=== PATIENT | female | born 1990 | race Caucasian/White ===

== ENCOUNTER 2020-06-16 15:58 | Observation (INO) | payer OTHER, SELFPAY ==
[2020-06-16 18:03] VITALS: BMI 28.9
--- NOTE | 2020-06-16 18:06 | OBADM ---
This patient, Mariam Johnson, admitted to the OB room Labor/Delivery/Recovery 105 for observation. Patient/family oriented to hospital policies and general routines including ID bracelet, bed and alarms, visiting hours, pain management, procedures, bathroom and other care routines, personal items, smoking policy, room service/diet, and visiting hours. Patient/Family are encouraged to report perceived risks to care and to ask questions if they do not understand what they are told or what they should do.
--- NOTE | 2020-07-16 20:08 | PM.OBTRLD ---
OB - Triage/Final Diagnosis Final Diagnosis (1) contractions: Code(s): O47.9 - False labor, unspecified Status: Acute
== END 2020-06-16 18:56 | disposition home or self-care (01) ==
PROVIDERS: Admitting Provider Obstetrics & Gynecology; Visit Provider Obstetrics & Gynecology
DX: O47.03 False labor before 37 completed weeks of gestation, third trimester (principal); Z3A.36 36 weeks gestation of pregnancy
CPT/HCPCS: G0378; G0379

== ENCOUNTER 2020-06-25 17:32 | Observation (INO) | payer OTHER, SELFPAY ==
--- NOTE | 2020-06-25 17:32 | OBADM ---
This patient, Mariam Johnson, admitted to the OB room Labor/Delivery/Recovery 106 for observation. Patient/family oriented to hospital policies and general routines including ID bracelet, bed and alarms, visiting hours, pain management, procedures, bathroom and other care routines, personal items, smoking policy, room service/diet, and visiting hours. Patient/Family are encouraged to report perceived risks to care and to ask questions if they do not understand what they are told or what they should do.
[2020-06-25 18:15] VITALS: BP 101/63; PULSE 86
[2020-06-25 18:30] VITALS: BMI 29.4
[2020-06-25 19:00] VITALS: BP 101/61; PULSE 83
--- NOTE | 2020-06-27 18:23 | PM.OBTRLD ---
OB - Triage/Final Diagnosis Visit Information Date of evaluation: 06/25/20 Reason for evaluation: threatened labor
== END 2020-06-25 19:33 | disposition home or self-care (01) ==
PROVIDERS: Admitting Provider Obstetrics & Gynecology; Visit Provider Obstetrics & Gynecology
DX: O47.9 False labor, unspecified (principal); Z3A.00 Weeks of gestation of pregnancy not specified
CPT/HCPCS: G0378; G0379

== ENCOUNTER 2020-07-03 06:51 | Inpatient (IN) | payer OTHER, SELFPAY ==
[2020-07-03] VITALS (29 sets, daily range): BP systolic 87–122; BP diastolic 48–82; PULSE 68–122; RESP 18; TEMP 36.3–36.6; O2SAT 100; BMI 29.2
--- NOTE | 2020-07-03 06:51 | LDADM ---
This patient, Mariam Johnson, was admitted to Labor/Delivery/Recovery 107 on 07/03/20 at 06:51. Plans for labor, pain management and were discussed with patient. Patient/family oriented to hospital policies and general routines including ID bracelet, bed and alarms, visiting hours, pain management, procedures, bathroom and other care routines, personal items, smoking policy, room service/diet and guest tray routines, infant security routines, and visiting hours. Patient/Family are encouraged to report perceived risks to care and to ask questions if they do not understand what they are told or what they should do. See OBIX for further documentation.
[2020-07-03 07:49] LABS: Basophils Percent Auto 0.2 % (0.2-1.2); Eosinophils Absolute Auto 0.1 K/mm3 (0-0.3); Eosinophils Percent Auto 0.6 % (0-4.4); Hematocrit 28.6 % (37.0-47.0); Hemoglobin 9.1 g/dL (12.0-15.0); Immature Granulocyte Absolute 0.04 K/mm3 (0.00-0.031); Immature Granulocyte Percent A 0.5 % (0-0.5); Lymphocytes Absolute Auto 1.68 K/mm3 (0.9-3.2); Lymphocytes Percent Auto 20.3 % (18.3-44.2); Mean Corpuscular HGB Conc 31.8 g/dl (32-36); Mean Corpuscular Hemoglobin 25.1 pg (26-34); Mean Platelet Volume 10.8 fl (7.4-10.4); Monocytes Absolute Auto 0.4 K/mm3 (0.1-0.6); Monocytes Percent Auto 4.5 % (2.6-8.5); Neutrophils Absolute Auto 6.1 K/mm3 (1.3-6.7); Neutrophils Percent Auto 73.9 % (45.5-73.1); Platelet Count Result 179 k/mm3 (150-375); Red Blood Count 3.62 M/mm3 (4.2-5.4); Red Cell Distribution Width 14.3 % (11.5-14.5); White Blood Count 8.3 K/mm3 (4.5-10.0)
--- NOTE | 2020-07-03 08:31 | WPDOBADMIT ---
Obstetrics - Admit Note Admission Note: 30 y/o elective induction VSS FHR catetory 1 Cervix /-2 AROM small amount of clear odorless fluid Anticpate record reviewed. No pertinent additions to the history and/or any subsequent changes in the physical findings that are not consistent with the expected course of the were found. Additions to the history and/or subsequent changes in the physical findings follow. None.
[2020-07-03] MEDS: OXYTOCIN 30 UNITS/NS 500 ML 30 UNITS/500 ML BAG IV CONT (13:17)
[2020-07-03] MEDS: LACTATED RINGERS 1,000 ML 125 ML IV CONT (13:17)
--- NOTE | 2020-07-03 16:14 | PM.OBPRVD ---
OB - Delivery Note Procedure Delivery date: 07/03/20 Intrapartal events: None Induction method: AROM and per pitocin protocol Delivery monitor: external FHT and external uterine Route of delivery: Laceration description: Perineal - 1st Degree Estimated blood loss (mL): 56 Anesthesia type: None Baby Date of : 07/03/20 Time of : 15:51 Weeks of gestation at delivery: 39 Infant gender: Male Weight (pounds): 7 Weight (ounces): 12 presentation: vertex position: Left Occiput Anterior Placenta delivery description: Spontaneous cord vessel description: 3 Vessels, Nuchal Cord, Loose and Reduced score one minute: 9 score five minutes: 9
[2020-07-03] MEDS: IBUPROFEN 600 MG TABLET PO ×2 (17:06→23:57)
[2020-07-03] MEDS: WITCH HAZEL 40 PADS 1 PAD TOPICAL (17:06)
[2020-07-03] MEDS: BENZOCAINE 20% AER SPR (*SP) 56 GM CAN 1 SPRAY TOPICAL (17:07)
--- NOTE | 2020-07-03 18:31 | PC.NURSE ---
Patient transferred to post room #282 via wheel chair. Support person present. Oriented to unit, room, information board, rooming in, admission packet and security measures. Patient verbalizes understanding.
[2020-07-04 05:42] LABS: Hematocrit 28.1 % (37.0-47.0)
[2020-07-04 07:11] LABS: Rapid Plasma Reagin Non-Reactive (NonReactive)
[2020-07-04 08:05] VITALS: BP 98/66; PULSE 71; RESP 18; TEMP 36.8
--- NOTE | 2020-07-04 08:07 | P.PNOB_ITS ---
OB - PN: Subj Subjective Date/time seen: 07/04/20 08:07 Patient comments: no complaints baby status: doing well [place] feeding status: exclusively breast feeding OB - PN: Obj Data Labs CBC & Chem 7: 07/04/20 04:27 Labs: Laboratory Results - last 24 hr 07/03/20 07/03/20 07/04/20 07:28 07:28 04:27 Hgb 9.0 L Hct 28.1 L RPR Non-reactive Blood Type A Positive Antibody Screen Negative OB - PN A/P Plan day: 1 Plan: discharge home Time Spent With Patient Time: Total time spent is greater than 50% in coordination of care (as documented) at patient's floor/unit and/or counseling patient: Review of Systems Review of Systems: All systems reviewed & are unremarkable except as noted in HPI and below Exam Const: General: comfortable Psych: Appearance: grossly normal Affect: normal affect Attitude: cooperative Judgement: Good judgement present (Psych)
[2020-07-04] MEDS: IBUPROFEN 600 MG TABLET PO ×2 (08:25→17:37)
[2020-07-04] MEDS: DOCUSATE SODIUM 100 MG CAPSULE PO ×2 (08:25→17:38)
[2020-07-04] MEDS: MULTIVIT/MIN/PREN/FOL AC/IRON TABLET 1 TAB PO (08:25)
[2020-07-04] MEDS: POLYSACCHARIDE IRON COMPLEX 150 MG CAPSULE PO ×2 (08:25→17:38)
--- NOTE | 2020-07-04 14:30 | PC.NURSE ---
PT introductions made and plan of care discussed per post , pain management, breast feeding, daily care activities and pending discharge to home. PT verbalized understanding of such care.
--- NOTE | 2020-07-04 17:15 | PC.NURSE ---
Pt received discharge instructions per protocol and verbalized understanding of such care
--- NOTE | 2020-07-04 17:26 | PC.NURSE ---
Patient viewed the discharge video Mother & Baby Care, The First Two Weeks . Patient was given the opportunity and encouraged to ask questions. Patient verbalized understanding of information shared and has been given the mother/baby guide for home reference.
--- NOTE | 2020-07-04 18:05 | PC.NURSE ---
PT discharged to home ambulatory accompanied by both spouse and infant to waiting car. Follow up appts confirmed
[2020-07-05 12:59] VITALS: BP 109/64; PULSE 60; RESP 20; TEMP 36.7; O2SAT 99
--- NOTE | 2020-08-07 07:49 | PM.OBDSVD ---
DS: Admitting Diagnosis Admitting Diagnosis Admitting Diagnosis: IOL OB - DS: Summary OB Procedures : None OB Procedures Intrapartum: Spontaneous Vag Delivery OB Procedures: : None Time Spent with Patient Time attestation: Total time spent providing and/or coordinating discharge services: Discharge Plan Discharge Attending physician on discharge: Keesha Judd Consulting providers: Edel Seay ; Mihaela Kumar Discharging Clinician: Mihaela Kumar Patient Disposition: Home, Self-Care Activity: pelvic rest Diet: regular Discharge Instructions: Education: Mom and Baby Guide Given to: Mother Follow-Up: Call your delivering provider's office for an appointment to be seen in: 4 Weeks Mom and baby [facility] follow-up appointment. Appointment Date/Time: July 05, 2020 at 12:30 pm What to expect at your follow-up visit: Blood Pressure Check Call [phone] if you are unable to keep your appointment time. BREAST CARE: * Wear a snug supportive bra. * For engorgement discomfort: Breast Feeding: * Apply warm moist washcloths * Express milk as needed to relieve engorgement * Wear loose clothing * For sore nipples: * Identify correct latch-on * Apply warm moist washcloths before and after nursing * Air dry nipples after nursing * May apply Lansinoh cream to nipples PERINEAL CARE: * Until bleeding stops, use your rony bottle after urinating * Change your pad frequently throughout the day * You may take sitz baths several times a day (fill your bathtub with warm water and soak for 20 minutes.) Do NOT bathe in the water * No tub baths until seen by your physician - You may shower ACTIVITY: * Rest as much as possible. * Do not exercise or lift anything heavier than your baby (such as laundry or other children.) * Avoid stairs or driving as much as possible. * Do not put anything into the vagina. No douching, tampons, or sexual activity until seen by physician. NOTIFY PHYSICIAN IF YOU HAVE ANY QUESTIONS OR IF ANY OF THE FOLLOWING SYMPTOMS OCCUR: * If your perineum becomes red, swollen, or more painful than what you have experienced in the hospital. * If your vaginal bleeding becomes foul smelling. * If your vaginal bleeding becomes more heavy than a period or if your bleeding changes from pink to bright red. However, you may pass an occasional walnut-sized clot once or twice for the first week . * If you experience a sharp, shooting pain in you calves. * If you discover a hard, reddened area on your breast or if you experience flu-like symptoms. * If you have a fever of 100.4 or greater DIET: * Eat regular, well-balanced meals. * Drink plenty of fluids daily. If , drink to thirst. Patient Instructions: Antibiotic Form Stand Alone Forms: General Discharge Information Follow-up/Referrals: Edel Seay CNM [Certified Nurse Home Care Chaplain] - 4 Weeks Discharge Medications: Continued sertraline 50 mg tablet 50 mg DAILY RF: 0 PNV [id number]-ferrous fumarate-FA [] 28 mg iron- 800 mcg Tablet 1 tablet PO DAILY RF: 0 Slow Fe 142 mg (45 mg iron) Tablet Extended Release 142 mg PO DAILY RF: 0 Date of admission: 07/03/20 06:51 Primary Care Provider: PHYSICIAN,NATURAL RESOURCE MANAGER Admitting Provider: Keesha Judd Discharge Date/Time: 07/04/20 18:05 Attending physician on admission: Keesha Judd
== END 2020-07-04 18:05 | disposition home or self-care (01) | DRG 560 ==
LOC: ANHLDR 06:54 → ANHOB2 18:44
PROVIDERS: Advanced Practice Midwife; Admitting Provider Obstetrics & Gynecology; Visit Provider Obstetrics & Gynecology
DX: O69.81X0 Labor and delivery complicated by cord around neck, without compression, not applicable or unspecified (principal); O70.0 First degree perineal laceration during delivery; Z3A.39 39 weeks gestation of pregnancy; Z37.0 Single live birth
CPT/HCPCS: 36415; 85014; 85018; 85025; 86592; 86850; 86900; 86901; A9270; J2590; J7120

== ENCOUNTER → 2022-09-11 14:22 | Outpatient (CLI) | payer OTHER, SELFPAY ==
--- NOTE | ~2022-09-11 | XR_ITS ---
EXAMINATION: XR chest 2V 09/11/2022 14:45 INDICATION: Cough PROCEDURE: 2 view chest COMPARISON: No prior studies for comparison. FINDINGS: The lungs are clear. The cardiomediastinal silhouette is within normal limits. There are no pleural effusions. There is no pneumothorax suspected. IMPRESSION: 1: NO ACUTE CARDIOPULMONARY DISEASE. Reviewed, dictated and finalized at location B.
== END ==
PROVIDERS: PCP Emergency Medicine; Visit Provider Emergency Medicine
DX: R05.9 Cough, unspecified (principal)
CPT/HCPCS: 71046